=== PATIENT | male | born 1970 | race Caucasian/White ===

== ENCOUNTER 2017-06-09 21:37 | Emergency (ER) | payer OTHER ==
[~2017-06-09] VITALS: Ht 157.5 cm; Wt 63.5 kg
[~2017-06-09 21:37] MED LIST: ACETAMINOPHEN650 M7 PO; ALLOPURINOL300 MG PO; ASPIR-TRIN325 M1 PO; ASPIRIN EC325 MG PO; ASPIRIN81 M2 PO; ATIVAN INTE2 MG/1 ML PO; Aspirin E.C. PO; BETAMETHASONE D15 GM TP; BUDESONIDE0.5 MG/2 M IH; CEROVITE ADVAN1 EACH PO; CEROVITE SENIO1 EACH PO; CHILD ASPIRIN81 M1 PO; CLEOCIN300 MG PO; DEBROX15 ML BOTH EARS; DIGOX125 MCG PO; DIGOXIN250 MCG PO; DIPROSONE 0.05%15 G1 TP; DIPROSONE 0.05%15 GM TP; DOXYCYCLINE HY100 MG PO; ECOTRIN325 MG PO; FLUOXETINE HCL40 MG PO; FUROSEMIDE40 MG PO; FUROSEMIDE80 MG PO; GLUCOPHAGE1000 MG; GLUCOPHAGE500 MG PO; Glucophage PO; K-DUR20 MEQ PO; K-Dur PO; KLOR-CON M2020 MEQ PO; LAMISIL250 MG PO; LANOXIN125 MCG PO; LANOXIN250 MCG PO; LASIX40 MG PO; LASIX80 MG PO; LEVOTHYROXINE50 MCG PO; Lanoxin,Digitek PO; Lasix PO; Levothroid,Synthroid PO; METFORMIN HCL500 MG PO; METOPROLOL SUCC25 MG PO; MORPHINE CON20 MG/M1 PO; MUCINEX600 MG PO; MULTI-VITAMIN1 EAC4 PO; MULTIVITAMIN PO; NASAL SPRAY30 M4 BOTH NARES; NOSE SPRAY30 ML BOTH NARES; ONDANSETRON ODT8 MG PO; POTASSIUM CHLO20 ME2 PO; PREDNISONE10 MG PO; PREDNISONE2.5 MG PO; PREDNISONE20 MG PO; PROAIR HFA8.5 GM IH; PROAIR RESPICL90 MCG IH; PROZAC40 MG PO; PROzac PO; PULMICORT0.25 MG/1; PULMICORT0.25 MG/1 IH; PULMICORT0.5 MG/21 IH; Proventil,Ventolin H IH; REVATIO20 MG; REVATIO20 MG PO; SALINE NASAL SP45 ML BOTH NARES; SENNA PLUS TAB1 EACH PO; SILDENAFIL20 MG PO; SYNTHROID50 MCG PO; TERBINAFINE HC250 MG PO; TOPROL XL25 MG PO; TYLENOL REGULA325 MG PO; Theragran PO; VENTOLIN HFA18 GM IH; ZITHROMAX Z-PA250 MG PO; ZOFRAN ODT8 MG PO; ZYLOPRIM150 MG PO; ZYLOPRIM300 MG PO; Zyloprim PO; [UNRECOGNIZED DRUG - OTHER] TP; predniSONE PO
[2017-06-09 22:56] LABS: HEMATOCRIT 41.9 % (38.0-50.0); MCH 33.3 PG (29.0-34.0); MCHC 33.7 G/DL (30.0-36.0); MCV 99.1 FL (86-99); PLATELET COUNT 200 K/uL (156-360); RBC DIS.WIDTH-CV 14.3 % (11.8-14.6); RBC DIS.WIDTH-SD 52.2 % (39-53); RED BLOOD COUNT 4.23 M/uL (4.00-5.50); WHITE BLOOD COUNT 8.7 K/uL (4.1-10.2)
[2017-06-09 23:06] LABS: CHLORIDE 98 mEq/L (99-109); POTASSIUM 3.8 mEq/L (3.7-5.4); SODIUM 140 mEq/L (136-147)
[2017-06-09 23:07] LABS: GLUCOSE 77 mg/dL (70-99)
[2017-06-09 23:09] LABS: ANION GAP 11 MEQ/L (2-14)
[2017-06-09 23:11] LABS: GFR ESTIMATE (CALCULATED) > 59 mL/min/
[2017-06-09 23:12] LABS: UREA NITROGEN (BUN) 24 mg/dL (9-23)
[2017-06-09 23:17] LABS: TROP-I INTERPRETATION NEGATIVE; TROPONIN-I 0.06 ng/mL (0.0-0.30)
[2017-06-10 00:11] VITALS: BP 101/67
== END 2017-06-10 00:09 | disposition home or self-care (01) ==
LOC: EME → EDBD 21:37 → EME 21:37
PROVIDERS: Emergency Medicine
DX: I50.9 Heart failure, unspecified (principal); E11.9 Type 2 diabetes mellitus without complications; J44.9 Chronic obstructive pulmonary disease, unspecified; E03.9 Hypothyroidism, unspecified; M10.9 Gout, unspecified; F41.9 Anxiety disorder, unspecified; Q90.9 Down syndrome, unspecified; Z87.01 Personal history of pneumonia (recurrent)
CPT/HCPCS: 71010; 80048; 84484; 85027; 93005; 99281; 99284

== ENCOUNTER → 2017-09-17 | Outpatient (CLI) | payer OTHER ==
[~2017-09-17] MED LIST changes: +ALBUTEROL2.5 MG/3 M IH; +ARTIFICIAL TEAR15 M1 BOTH EYES; +BIOTENE MOISTUR45 ML PO; +BIOTENE ORALBAL42 G1 MM; +MOBIC15 MG PO; +QVAR 40 MCG IN7.3 GM IH; +RISPERDAL0.5 MG PO
== END | disposition home or self-care (01) ==
LOC: RES 08:38 → NUC 10:30
DX: R91.8 Other nonspecific abnormal finding of lung field (principal)
CPT/HCPCS: 71020; 78582; 94060; A9540; A9567

== ENCOUNTER 2017-09-20 09:28 | Day surgery (SDC) | payer OTHER ==
[~2017-09-20] VITALS: Ht 154.9 cm; Wt 63.0 kg
[2017-09-20 10:30] LABS: POINT-OF-CARE METER ID UU13113696
[2017-09-20 10:54] LABS: HEMATOCRIT 46.1 % (38.0-50.0); MCH 33.2 PG (29.0-34.0); MCHC 33.6 G/DL (30.0-36.0); MCV 98.7 FL (86-99); MEAN PLAT.VOLUME 11.1 uM^3 (9.0-12.4); PLATELET COUNT 196 K/uL (156-360); RBC DIS.WIDTH-CV 14.7 % (11.8-14.6); RBC DIS.WIDTH-SD 53.1 % (39-53); RED BLOOD COUNT 4.67 M/uL (4.00-5.50)
[2017-09-20 11:03] LABS: INTER. NORMALIZED RATIO 1.1; PROTHROMBIN TIME 12.1 SEC (10.2-12.9)
[2017-09-20 11:05] LABS: PTT 33.2 SEC (25-37)
[2017-09-20 11:06] LABS: CHLORIDE 99 mEq/L (99-109); SODIUM 139 mEq/L (136-147)
[2017-09-20 11:07] LABS: GLUCOSE 97 mg/dL (70-99)
[2017-09-20 11:09] LABS: ANION GAP 10 MEQ/L (2-14)
[2017-09-20 11:11] LABS: GFR ESTIMATE (CALCULATED) > 59 mL/min/ (58.99-99999)
[2017-09-20 11:12] LABS: UREA NITROGEN (BUN) 29 mg/dL (9-23)
[2017-09-20 12:25] LABS: BASE EXCESS 8.9 mEq/L (-3 to +3); BICARBONATE 37.3 mEq/L (22-26); CARBOXY HGB 1.8 % (0-5); PCO2 66 mm Hg (35-45); PO2 40 mm Hg (80-100); pH 7.36 (7.35-7.45)
[2017-09-20 12:26] LABS: SITE CATH LAB-RA
[2017-09-20 12:29] LABS: BASE EXCESS 6.1 mEq/L (-3 to +3); BICARBONATE 34.8 mEq/L (22-26); CARBOXY HGB 1.1 % (0-5); METHEMOGLOBIN 1.3 % (0-1.5); PCO2 66 mm Hg (35-45); PO2 36 mm Hg (80-100); SITE CATH LAB-IVC; pH 7.33 (7.35-7.45)
== END 2017-09-20 17:50 | disposition home or self-care (01) ==
LOC: CATH 09:28
PROVIDERS: Internal Medicine Cardiovascular Disease
PROC: 4A023N6 Measurement of Cardiac Sampling and Pressure, Right Heart, Percutaneous Approach (ICD-10-PCS; principal; 2017-09-20)
DX: I27.83 Eisenmenger's syndrome (principal); Q90.9 Down syndrome, unspecified; Q21.1 Atrial septal defect; Q22.8 Other congenital malformations of tricuspid valve; Q21.2 Atrioventricular septal defect; Q21.8 Other congenital malformations of cardiac septa; D75.1 Secondary polycythemia; I47.2 Ventricular tachycardia; I50.9 Heart failure, unspecified; E11.51 Type 2 diabetes mellitus with diabetic peripheral angiopathy without gangrene; E03.9 Hypothyroidism, unspecified; Z99.81 Dependence on supplemental oxygen; Z79.82 Long term (current) use of aspirin; Z79.84 Long term (current) use of oral hypoglycemic drugs
CPT/HCPCS: 36600; 80048; 82803; 82948; 85027; 85610; 85730; 93005; C1894; J2250; J3010; J7040

== ENCOUNTER 2017-12-13 11:36 | Emergency (ER) | payer OTHER ==
[~2017-12-13] VITALS: Ht 149.9 cm; Wt 72.0 kg
[2017-12-13 12:29] LABS: BASOPHIL COUNT 0.1 K/uL (0-0.1); EOSINOPHIL (%) 1.8 % (0-5); EOSINOPHIL COUNT 0.1 K/uL (0-0.3); HEMATOCRIT 43.1 % (38.0-50.0); HEMOGLOBIN 14.6 G/DL (12.5-16.6); IMMATURE GRANULOCYTE (%) 1.1 % (0.0-0.7); LYMPHOCYTE (%) 12.6 % (15-42); LYMPHOCYTE COUNT 0.8 K/uL (1.0-2.8); MCH 32.8 PG (29.0-34.0); MCHC 33.9 G/DL (30.0-36.0); MCV 96.9 FL (86-99); MONOCYTE (%) 11.6 % (3-12); MONOCYTE COUNT 0.7 K/uL (0-0.8); NEUTROPHIL (%) 71.9 % (45-76); NEUTROPHIL COUNT 4.4 K/uL (1.8-6.4); PLATELET COUNT 187 K/uL (156-360); RBC DIS.WIDTH-CV 15.8 % (11.8-14.6); RBC DIS.WIDTH-SD 54.9 % (39-53); RED BLOOD COUNT 4.45 M/uL (4.00-5.50); WHITE BLOOD COUNT 6.1 K/uL (4.1-10.2)
[2017-12-13 12:41] LABS: CHLORIDE 101 mEq/L (99-109); POTASSIUM 4.5 mEq/L (3.7-5.4); SODIUM 137 mEq/L (136-147)
[2017-12-13 12:42] LABS: GLUCOSE 130 mg/dL (70-99)
[2017-12-13 12:46] LABS: CREATININE 1.4 mg/dL (0.6-1.3); GFR ESTIMATE (CALCULATED) 57 mL/min/ (58.99-99999)
[2017-12-13 12:47] LABS: UREA NITROGEN (BUN) 29 mg/dL (9-23)
[2017-12-13 12:49] LABS: INTER. NORMALIZED RATIO 1.2
[2017-12-13 12:52] LABS: PTT 31.9 SEC (25-37)
[2017-12-13 12:53] LABS: TROP-I INTERPRETATION NEGATIVE; TROPONIN-I 0.09 ng/mL (0.0-0.30)
[2017-12-13 14:33] VITALS: BP 117/76
== END 2017-12-13 14:47 | disposition home or self-care (01) ==
LOC: EME 11:36
PROVIDERS: Emergency Medicine
DX: I50.9 Heart failure, unspecified (principal); Q90.9 Down syndrome, unspecified; R06.2 Wheezing; Z99.81 Dependence on supplemental oxygen; E11.9 Type 2 diabetes mellitus without complications; Z79.84 Long term (current) use of oral hypoglycemic drugs; I42.9 Cardiomyopathy, unspecified; M10.9 Gout, unspecified; E03.9 Hypothyroidism, unspecified
CPT/HCPCS: 71045; 71250; 80048; 83880; 84484; 85025; 85610; 85730; 93005; 94640; 99281; 99285; J1940

== ENCOUNTER 2017-12-17 12:40 | Inpatient (IN) | payer OTHER ==
[~2017-12-17] VITALS: Ht 152.4 cm; Wt 83.9 kg
[~2017-12-17 12:40] MED LIST changes: -PROAIR RESPICL90 MCG IH
[2017-12-17 13:22] LABS: HEMATOCRIT 41.9 % (38.0-50.0); HEMOGLOBIN 14.2 G/DL (12.5-16.6); MCH 32.9 PG (29.0-34.0); MCHC 33.9 G/DL (30.0-36.0); MCV 97.2 FL (86-99); PLATELET COUNT 185 K/uL (156-360); RBC DIS.WIDTH-CV 15.6 % (11.8-14.6); RBC DIS.WIDTH-SD 55.3 % (39-53); RED BLOOD COUNT 4.31 M/uL (4.00-5.50); WHITE BLOOD COUNT 4.5 K/uL (4.1-10.2)
[2017-12-17 13:36] LABS: CHLORIDE 102 mEq/L (99-109); POTASSIUM 4.3 mEq/L (3.7-5.4); SODIUM 139 mEq/L (136-147)
[2017-12-17 13:37] LABS: GLUCOSE 62 mg/dL (70-99)
[2017-12-17 13:41] LABS: CREATININE 1.5 mg/dL (0.6-1.3); GFR ESTIMATE (CALCULATED) 53 mL/min/ (58.99-99999)
[2017-12-17 13:42] LABS: UREA NITROGEN (BUN) 26 mg/dL (9-23)
[2017-12-17 13:46] LABS: TROP-I INTERPRETATION NEGATIVE; TROPONIN-I 0.08 ng/mL (0.0-0.30)
[2017-12-17 14:28] LABS: BASE EXCESS 4.4 mEq/L (-3 to +3); BICARBONATE 30.8 mEq/L (22-26); COMMENTS - BLOOD GASES A+C+; DEVICE HFNC; METHEMOGLOBIN 0 % (0-1.5); O2 FLOW 6 L/MIN; PCO2 52 mm Hg (35-45); PO2 46 mm Hg (80-100); SITE RR; pH 7.38 (7.35-7.45)
[2017-12-17 14:29] LABS: TOTAL RESP RATE 20 resp/min
[2017-12-17] MEDS ORDERED: FLUOXETINE HCL40 MG PO (16:03)
[2017-12-17] MEDS ORDERED: REVATIO20 MG PO (16:03)
[2017-12-17] MEDS ORDERED: AMARYL1 MG PO (16:05)
[2017-12-17] MEDS ORDERED: PROCARDIA XL30 MG PO (16:06)
[2017-12-17] MEDS ORDERED: DUONEB 2.5-0.5 M3 ML AEROSOL (16:06)
[2017-12-17] MEDS ORDERED: CILOSTAZOL50 MG PO (16:06)
[2017-12-17] MEDS ORDERED: FLOVENT 11120 INHALA IH (16:07)
[2017-12-17] MEDS ORDERED: OMNICEF300 MG PO (16:07)
[2017-12-17 17:45] VITALS: BP 99/63
[2017-12-17 19:00] VITALS: BP 102/58
[2017-12-17 19:05] VITALS: BP 102/58
[2017-12-17 19:28] LABS: TROP-I INTERPRETATION NEGATIVE; TROPONIN-I 0.07 ng/mL (0.0-0.30)
[2017-12-17 23:06] VITALS: BP 109/58
[2017-12-18] VITALS (7 sets, daily range): BP systolic 98–122; BP diastolic 53–71
[2017-12-18 01:03] LABS: TROP-I INTERPRETATION NEGATIVE; TROPONIN-I 0.08 ng/mL (0.0-0.30)
[2017-12-18 05:32] LABS: BASOPHIL (%) 2.3 % (0-1); BASOPHIL COUNT 0.1 K/uL (0-0.1); EOSINOPHIL (%) 5.3 % (0-5); EOSINOPHIL COUNT 0.2 K/uL (0-0.3); HEMATOCRIT 41.3 % (38.0-50.0); HEMOGLOBIN 13.7 G/DL (12.5-16.6); IMMATURE GRANULOCYTE (%) 0.5 % (0.0-0.7); LYMPHOCYTE (%) 20.7 % (15-42); LYMPHOCYTE COUNT 0.9 K/uL (1.0-2.8); MCH 32.1 PG (29.0-34.0); MCHC 33.2 G/DL (30.0-36.0); MCV 96.7 FL (86-99); MONOCYTE (%) 14.4 % (3-12); MONOCYTE COUNT 0.6 K/uL (0-0.8); NEUTROPHIL (%) 56.8 % (45-76); NEUTROPHIL COUNT 2.4 K/uL (1.8-6.4); PLATELET COUNT 189 K/uL (156-360); RBC DIS.WIDTH-CV 15.7 % (11.8-14.6); RBC DIS.WIDTH-SD 54.3 % (39-53); RED BLOOD COUNT 4.27 M/uL (4.00-5.50); WHITE BLOOD COUNT 4.3 K/uL (4.1-10.2)
[2017-12-18 05:43] LABS: APPEARANCE CLEAR ((CLEAR)); BILIRUBIN NEGATIVE; BLOOD NEGATIVE; COLOR YELLOW ((YELLOW)); GLUCOSE (STRIP) NEGATIVE; KETONES NEGATIVE; LEUKOCYTES NEGATIVE; NITRITE NEGATIVE; PROTEIN (STRIP) NEGATIVE; SPECIFIC GRAVITY 1.009 (1.000-1.030); UCUL ADDED? NO; UROBILINOGEN 0.2 MG/DL (0.2-1.0)
[2017-12-18 05:47] LABS: TROP-I INTERPRETATION NEGATIVE; TROPONIN-I 0.08 ng/mL (0.0-0.30)
[2017-12-18 06:01] LABS: ALBUMIN 3.3 G/DL (3.2-4.8); ALKALINE PHOSPHATASE 98 IU/L (3-129); ALT (GPT) 16 IU/L (3-49); AST (GOT) 26 IU/L (2-34); CHLORIDE 101 MEQ/L (99-109); CREATININE 1.5 MG/DL (0.6-1.3); GFR ESTIMATE (CALCULATED) 53 mL/min/ (58.99-99999); GLUCOSE 70 mg/dL (70-99); POTASSIUM 4.2 MEQ/L (3.7-5.4); SODIUM 137 MEQ/L (136-147); TOTAL BILIRUBIN 0.4 MG/DL (0.0-1.0); TOTAL PROTEIN 6.5 G/DL (6.4-8.3); UREA NITROGEN (BUN) 30 mg/dL (9-23)
[2017-12-18 10:41] LABS: MAGNESIUM 1.9 mg/dl (1.3-2.7)
[2017-12-18 14:56] LABS: HEMOGLOBIN A1c (GLYCOHEMOGLOB) 5.7 % (Below 5.7)
[2017-12-19] VITALS (10 sets, daily range): BP systolic 93–135; BP diastolic 52–75
[2017-12-19 04:36] LABS: BASOPHIL (%) 1.8 % (0-1); BASOPHIL COUNT 0.1 K/uL (0-0.1); EOSINOPHIL (%) 5.3 % (0-5); EOSINOPHIL COUNT 0.2 K/uL (0-0.3); HEMATOCRIT 39.4 % (38.0-50.0); HEMOGLOBIN 13.4 G/DL (12.5-16.6); IMMATURE GRANULOCYTE (%) 0.5 % (0.0-0.7); LYMPHOCYTE (%) 22.6 % (15-42); LYMPHOCYTE COUNT 0.9 K/uL (1.0-2.8); MCH 32.8 PG (29.0-34.0); MCV 96.3 FL (86-99); MONOCYTE (%) 13.2 % (3-12); MONOCYTE COUNT 0.5 K/uL (0-0.8); NEUTROPHIL (%) 56.6 % (45-76); NEUTROPHIL COUNT 2.2 K/uL (1.8-6.4); PLATELET COUNT 184 K/uL (156-360); RBC DIS.WIDTH-CV 15.3 % (11.8-14.6); RBC DIS.WIDTH-SD 54.4 % (39-53); RED BLOOD COUNT 4.09 M/uL (4.00-5.50); WHITE BLOOD COUNT 3.9 K/uL (4.1-10.2)
[2017-12-19 04:50] LABS: ALBUMIN 3.2 g/dL (3.2-4.8); CHLORIDE 100 mEq/L (99-109); SODIUM 138 mEq/L (136-147)
[2017-12-19 04:52] LABS: GLUCOSE 83 mg/dL (70-99); TOTAL PROTEIN 6.5 g/dL (6.4-8.3)
[2017-12-19 04:54] LABS: TOTAL BILIRUBIN 0.4 mg/dL (0.0-1.0)
[2017-12-19 04:56] LABS: ALKALINE PHOSPHATASE 102 IU/L (3-129); CREATININE 1.4 mg/dL (0.6-1.3); GFR ESTIMATE (CALCULATED) 57 mL/min/ (58.99-99999)
[2017-12-19 04:57] LABS: UREA NITROGEN (BUN) 31 mg/dL (9-23)
[2017-12-19 04:58] LABS: AST (GOT) 28 IU/L (2-34)
[2017-12-19 04:59] LABS: ALT (GPT) 21 IU/L (3-49)
[2017-12-19 12:56] LABS: BASE EXCESS 2.3 mEq/L (-3 to +3); BICARBONATE 28.8 mEq/L (22-26); CARBOXY HGB 1.9 % (0-5); COMMENTS - BLOOD GASES A+C+; DEVICE HHFNC/NRBM; FI02 100 %; METHEMOGLOBIN 1.4 % (0-1.5); O2 FLOW 45 L/MIN; PCO2 51 mm Hg (35-45); PO2 50 mm Hg (80-100); SITE LR; pH 7.36 (7.35-7.45)
[2017-12-19 12:57] LABS: TOTAL RESP RATE 22 resp/min
[2017-12-20] VITALS (15 sets, daily range): BP systolic 88–128; BP diastolic 49–74
[2017-12-21] VITALS (19 sets, daily range): BP systolic 90–116; BP diastolic 47–73
[2017-12-21 05:15] LABS: BASOPHIL (%) 2.3 % (0-1); BASOPHIL COUNT 0.1 K/uL (0-0.1); EOSINOPHIL (%) 6.5 % (0-5); EOSINOPHIL COUNT 0.3 K/uL (0-0.3); HEMATOCRIT 40.5 % (38.0-50.0); HEMOGLOBIN 14.2 G/DL (12.5-16.6); IMMATURE GRANULOCYTE (%) 0.2 % (0.0-0.7); LYMPHOCYTE (%) 19.3 % (15-42); LYMPHOCYTE COUNT 0.8 K/uL (1.0-2.8); MCH 32.8 PG (29.0-34.0); MCHC 35.1 G/DL (30.0-36.0); MCV 93.5 FL (86-99); MONOCYTE (%) 10.3 % (3-12); MONOCYTE COUNT 0.4 K/uL (0-0.8); NEUTROPHIL (%) 61.4 % (45-76); NEUTROPHIL COUNT 2.6 K/uL (1.8-6.4); PLATELET COUNT 213 K/uL (156-360); RBC DIS.WIDTH-SD 51.5 % (39-53); RED BLOOD COUNT 4.33 M/uL (4.00-5.50); WHITE BLOOD COUNT 4.3 K/uL (4.1-10.2)
[2017-12-21 05:53] LABS: CHLORIDE 101 mEq/L (99-109); POTASSIUM 3.5 mEq/L (3.7-5.4); SODIUM 137 mEq/L (136-147)
[2017-12-21 05:54] LABS: MAGNESIUM 1.8 mg/dL (1.3-2.7)
[2017-12-21 05:55] LABS: GLUCOSE 91 mg/dL (70-99)
[2017-12-21 05:59] LABS: CREATININE 1.3 mg/dL (0.6-1.3); GFR ESTIMATE (CALCULATED) > 59 mL/min/ (58.99-99999); PHOSPHORUS 3.4 mg/dL (2.5-4.9)
[2017-12-21 06:00] LABS: UREA NITROGEN (BUN) 29 mg/dL (9-23)
[2017-12-21 19:47] LABS: C DIFF TOXIN NEGATIVE (NEGATIVE)
[2017-12-22] VITALS (20 sets, daily range): BP systolic 93–135; BP diastolic 46–95
[2017-12-23] VITALS (16 sets, daily range): BP systolic 97–145; BP diastolic 41–93
[2017-12-23 05:04] LABS: BASOPHIL (%) 1.2 % (0-1); BASOPHIL COUNT 0.1 K/uL (0-0.1); EOSINOPHIL (%) 2.8 % (0-5); EOSINOPHIL COUNT 0.2 K/uL (0-0.3); HEMATOCRIT 38.7 % (38.0-50.0); HEMOGLOBIN 12.6 G/DL (12.5-16.6); IMMATURE GRANULOCYTE (%) 0.6 % (0.0-0.7); LYMPHOCYTE (%) 10.8 % (15-42); LYMPHOCYTE COUNT 0.7 K/uL (1.0-2.8); MCH 31.3 PG (29.0-34.0); MCHC 32.6 G/DL (30.0-36.0); MCV 96.3 FL (86-99); MONOCYTE (%) 10.9 % (3-12); MONOCYTE COUNT 0.8 K/uL (0-0.8); NEUTROPHIL (%) 73.7 % (45-76); NEUTROPHIL COUNT 5.1 K/uL (1.8-6.4); NRBC (%) 0.4 /100 WBC (0-0); PLATELET COUNT 198 K/uL (156-360); RBC DIS.WIDTH-CV 15.5 % (11.8-14.6); RBC DIS.WIDTH-SD 54.2 % (39-53); RED BLOOD COUNT 4.02 M/uL (4.00-5.50); WHITE BLOOD COUNT 6.9 K/uL (4.1-10.2)
[2017-12-23 05:32] LABS: CHLORIDE 99 MEQ/L (99-109); CREATININE 1.4 MG/DL (0.6-1.3); GFR ESTIMATE (CALCULATED) 57 mL/min/ (58.99-99999); GLUCOSE 96 mg/dL (70-99); MAGNESIUM 1.9 mg/dl (1.3-2.7); PHOSPHORUS 3.1 mg/dL (2.5-4.9); POTASSIUM 3.3 MEQ/L (3.7-5.4); SODIUM 134 MEQ/L (136-147); UREA NITROGEN (BUN) 23 mg/dL (9-23)
[2017-12-23 22:06] LABS: BASE EXCESS 0.4 mEq/L (-3 to +3); BICARBONATE 27.7 mEq/L (22-26); CARBOXY HGB 1.3 % (0-5); COMMENTS - BLOOD GASES C+; DEVICE HHFNC; FI02 100 %; METHEMOGLOBIN 1.5 % (0-1.5); O2 FLOW 60 L/MIN; PCO2 55 mm Hg (35-45); PO2 34 mm Hg (80-100); SITE LR; pH 7.31 (7.35-7.45)
[2017-12-24] VITALS (16 sets, daily range): BP systolic 89–118; BP diastolic 52–76
[2017-12-24 04:49] LABS: BASOPHIL (%) 0.4 % (0-1); EOSINOPHIL (%) 0.1 % (0-5); HEMATOCRIT 38.9 % (38.0-50.0); HEMOGLOBIN 13.5 G/DL (12.5-16.6); IMMATURE GRANULOCYTE (%) 0.9 % (0.0-0.7); LYMPHOCYTE COUNT 0.3 K/uL (1.0-2.8); MCHC 34.7 G/DL (30.0-36.0); MCV 95.1 FL (86-99); MONOCYTE (%) 1.3 % (3-12); MONOCYTE COUNT 0.1 K/uL (0-0.8); NEUTROPHIL (%) 93.3 % (45-76); NEUTROPHIL COUNT 7.3 K/uL (1.8-6.4); NRBC (%) 0.6 /100 WBC (0-0); PLATELET COUNT 195 K/uL (156-360); RBC DIS.WIDTH-CV 15.3 % (11.8-14.6); RBC DIS.WIDTH-SD 53.1 % (39-53); RED BLOOD COUNT 4.09 M/uL (4.00-5.50); WHITE BLOOD COUNT 7.8 K/uL (4.1-10.2)
[2017-12-24 05:06] LABS: CHLORIDE 103 mEq/L (99-109); SODIUM 138 mEq/L (136-147)
[2017-12-24 05:07] LABS: MAGNESIUM 1.9 mg/dL (1.3-2.7)
[2017-12-24 05:09] LABS: GLUCOSE 150 mg/dL (70-99)
[2017-12-24 05:12] LABS: CREATININE 1.3 mg/dL (0.6-1.3); GFR ESTIMATE (CALCULATED) > 59 mL/min/ (58.99-99999); PHOSPHORUS 2.9 mg/dL (2.5-4.9)
[2017-12-24 05:13] LABS: UREA NITROGEN (BUN) 22 mg/dL (9-23)
[2017-12-25] VITALS (20 sets, daily range): BP systolic 81–112; BP diastolic 45–79
[2017-12-25 06:12] LABS: BASOPHIL (%) 0.1 % (0-1); EOSINOPHIL (%) 0 % (0-5); HEMATOCRIT 37.5 % (38.0-50.0); HEMOGLOBIN 12.6 G/DL (12.5-16.6); IMMATURE GRANULOCYTE (%) 0.8 % (0.0-0.7); LYMPHOCYTE (%) 3.5 % (15-42); LYMPHOCYTE COUNT 0.3 K/uL (1.0-2.8); MCH 31.9 PG (29.0-34.0); MCHC 33.6 G/DL (30.0-36.0); MCV 94.9 FL (86-99); MONOCYTE (%) 3.1 % (3-12); MONOCYTE COUNT 0.3 K/uL (0-0.8); NEUTROPHIL (%) 92.5 % (45-76); NEUTROPHIL COUNT 8.5 K/uL (1.8-6.4); NRBC (%) 0.7 /100 WBC (0-0); PLATELET COUNT 206 K/uL (156-360); RBC DIS.WIDTH-CV 15.4 % (11.8-14.6); RBC DIS.WIDTH-SD 52.8 % (39-53); RED BLOOD COUNT 3.95 M/uL (4.00-5.50); WHITE BLOOD COUNT 9.2 K/uL (4.1-10.2)
[2017-12-25 06:41] LABS: CHLORIDE 101 MEQ/L (99-109); CREATININE 1.7 MG/DL (0.6-1.3); GFR ESTIMATE (CALCULATED) 46 mL/min/ (58.99-99999); GLUCOSE 159 mg/dL (70-99); MAGNESIUM 1.9 mg/dl (1.3-2.7); PHOSPHORUS 3.5 mg/dL (2.5-4.9); POTASSIUM 4.2 MEQ/L (3.7-5.4); SODIUM 136 MEQ/L (136-147); UREA NITROGEN (BUN) 31 mg/dL (9-23)
[2017-12-26] VITALS (23 sets, daily range): BP systolic 82–127; BP diastolic 49–101
[2017-12-26 05:19] LABS: BASOPHIL (%) 0.1 % (0-1); EOSINOPHIL (%) 0 % (0-5); HEMATOCRIT 37.6 % (38.0-50.0); IMMATURE GRANULOCYTE (%) 0.4 % (0.0-0.7); LYMPHOCYTE (%) 1.5 % (15-42); LYMPHOCYTE COUNT 0.2 K/uL (1.0-2.8); MCH 32.3 PG (29.0-34.0); MCHC 34.6 G/DL (30.0-36.0); MCV 93.5 FL (86-99); MONOCYTE (%) 2.3 % (3-12); MONOCYTE COUNT 0.3 K/uL (0-0.8); NEUTROPHIL (%) 95.7 % (45-76); NEUTROPHIL COUNT 11.8 K/uL (1.8-6.4); NRBC (%) 0.6 /100 WBC (0-0); PLATELET COUNT 213 K/uL (156-360); RBC DIS.WIDTH-CV 15.4 % (11.8-14.6); RED BLOOD COUNT 4.02 M/uL (4.00-5.50); WHITE BLOOD COUNT 12.3 K/uL (4.1-10.2)
[2017-12-26 05:53] LABS: CHLORIDE 98 MEQ/L (99-109); CREATININE 1.6 MG/DL (0.6-1.3); GFR ESTIMATE (CALCULATED) 49 mL/min/ (58.99-99999); GLUCOSE 183 mg/dL (70-99); MAGNESIUM 1.9 mg/dl (1.3-2.7); PHOSPHORUS 3.8 mg/dL (2.5-4.9); SODIUM 133 MEQ/L (136-147); UREA NITROGEN (BUN) 34 mg/dL (9-23)
[2017-12-27 03:00] VITALS: BP 109/82
[2017-12-27 04:00] VITALS: BP 117/75
[2017-12-27 05:00] VITALS: BP 107/58
[2017-12-27 05:58] LABS: BASOPHIL (%) 0.1 % (0-1); EOSINOPHIL (%) 0 % (0-5); HEMATOCRIT 37.7 % (38.0-50.0); HEMOGLOBIN 12.7 G/DL (12.5-16.6); IMMATURE GRANULOCYTE (%) 0.8 % (0.0-0.7); LYMPHOCYTE (%) 0.7 % (15-42); LYMPHOCYTE COUNT 0.1 K/uL (1.0-2.8); MCH 31.3 PG (29.0-34.0); MCHC 33.7 G/DL (30.0-36.0); MCV 92.9 FL (86-99); MONOCYTE (%) 3.8 % (3-12); MONOCYTE COUNT 0.5 K/uL (0-0.8); NEUTROPHIL (%) 94.6 % (45-76); NEUTROPHIL COUNT 13.3 K/uL (1.8-6.4); NRBC (%) 0.7 /100 WBC (0-0); PLATELET COUNT 235 K/uL (156-360); RBC DIS.WIDTH-CV 15.4 % (11.8-14.6); RBC DIS.WIDTH-SD 51.1 % (39-53); RED BLOOD COUNT 4.06 M/uL (4.00-5.50)
[2017-12-27 06:20] LABS: CHLORIDE 99 MEQ/L (99-109); CREATININE 1.7 MG/DL (0.6-1.3); GFR ESTIMATE (CALCULATED) 46 mL/min/ (58.99-99999); GLUCOSE 260 mg/dL (70-99); MAGNESIUM 2.1 mg/dl (1.3-2.7); PHOSPHORUS 3.1 mg/dL (2.5-4.9); POTASSIUM 3.8 MEQ/L (3.7-5.4); SODIUM 135 MEQ/L (136-147); UREA NITROGEN (BUN) 37 mg/dL (9-23)
== END 2017-12-27 07:11 | DRG 193 ==
LOC: EME 12:40 → 4WEST 15:55 → EDOF 15:55 → ENRESERV 16:01 → 4EAST 17:44 → ENRESERV 12-19 12:57 → 4WEST 12-19 13:30 → ENRESERV 12-23 20:57 → CANRESERV 12-23 21:10 → ENRESERV 12-23 21:10 → 4WEST 12-23 23:12
PROVIDERS: Emergency Medicine; Hospitalist; Specialist
PROC: 5A09357 Assistance with Respiratory Ventilation, Less than 24 Consecutive Hours, Continuous Positive Airway Pressure (ICD-10-PCS; principal; 2017-12-19)
DX: J18.9 Pneumonia, unspecified organism (principal); I13.0 Hypertensive heart and chronic kidney disease with heart failure and stage 1 through stage 4 chronic kidney disease, or unspecified chronic kidney disease; I50.22 Chronic systolic (congestive) heart failure; J96.21 Acute and chronic respiratory failure with hypoxia; I95.9 Hypotension, unspecified; N18.3 Chronic kidney disease, stage 3 (moderate); E11.22 Type 2 diabetes mellitus with diabetic chronic kidney disease; I50.82 Biventricular heart failure; I27.81 Cor pulmonale (chronic); I27.83 Eisenmenger's syndrome; Q21.2 Atrioventricular septal defect; I47.2 Ventricular tachycardia; I07.1 Rheumatic tricuspid insufficiency; R41.82 Altered mental status, unspecified; E03.9 Hypothyroidism, unspecified; F41.9 Anxiety disorder, unspecified; M10.9 Gout, unspecified; Z66 Do not resuscitate; E66.9 Obesity, unspecified; Z68.34 Body mass index [BMI] 34.0-34.9, adult; Z99.81 Dependence on supplemental oxygen; Q90.9 Down syndrome, unspecified; Z79.82 Long term (current) use of aspirin
CPT/HCPCS: 36600; 71045; 71046; 80048; 80053; 80162; 80202; 81003; 82803; 82948; 83036; 83605; 83735; 83880; 84100; 84484; 85025; 85027; 85379; 87040; 87493; 87502; 87641; 93005; 93970; 94640; 94640 76; 94660; 94760; 94799; 99202; 99281; 99285; J0456; J0696; J1630; J1650; J1815; J1940; J2270; J2543; J2930; J3370; J3475; J7050